=== PATIENT | female | born 1970 | race Caucasian/White ===

== ENCOUNTER 2018-01-01 12:41 | Day surgery (SDC) | payer BC ==
[~2018-01-01] VITALS: Ht 172.7 cm; Wt 141.0 kg
[2018-01-01 13:02] VITALS: BP 128/78; PULSE 88; TEMP 99.5
[2018-01-01] MEDS ORDERED: NIACIN 100100 MG/TAB PO (13:05)
[2018-01-01] MEDS ORDERED: JANUVIA 100MG100 MG PO (13:05)
[2018-01-01] MEDS ORDERED: PRINIVIL10 MG PO (13:05)
[2018-01-01] MEDS ORDERED: ALLEGRA 60MG TA60 MG PO (13:06)
[2018-01-01] MEDS ORDERED: SINGULAIR 110 MG/TAB PO (13:06)
[2018-01-01] MEDS ORDERED: FLONASEALLERGY NS (13:06)
[2018-01-01] MEDS ORDERED: SYNTHROID0.125 MG/T PO (13:06)
[2018-01-01] MEDS ORDERED: BYDUREON P2 MG/0.65 SQ (13:07)
[2018-01-01] MEDS ORDERED: 00186-0372-20 IH (13:07)
[2018-01-01 14:15] VITALS: BP 101/67; PULSE 89; TEMP 97.8
[2018-01-01 14:30] VITALS: BP 114/82; PULSE 81
== END 2018-01-01 14:44 | disposition home or self-care (01) ==
LOC: SDCO 12:41
DX: K92.1 Melena (principal); K64.1 Second degree hemorrhoids; K64.4 Residual hemorrhoidal skin tags; J45.909 Unspecified asthma, uncomplicated; E11.9 Type 2 diabetes mellitus without complications; K76.0 Fatty (change of) liver, not elsewhere classified; E07.9 Disorder of thyroid, unspecified; E78.00 Pure hypercholesterolemia, unspecified; K21.9 Gastro-esophageal reflux disease without esophagitis
CPT/HCPCS: J2250; J3010; J7030

== ENCOUNTER → 2021-02-19 | Outpatient (CLI) | payer BC ==
[~2021-02-19] MED LIST: 00186-0372-20 IH; ALLEGRA 60MG TA60 MG PO; BYDUREON P2 MG/0.65 SQ; FLONASEALLERGY NS; JANUVIA 100MG100 MG PO; NIACIN 100100 MG/TAB PO; PRINIVIL10 MG PO; SINGULAIR 110 MG/TAB PO; SYNTHROID0.125 MG/T PO
== END ==
LOC: MC.RAD 12:43
DX: Z12.31 Encounter for screening mammogram for malignant neoplasm of breast (principal)

== ENCOUNTER → 2022-06-13 | Outpatient (CLI) | payer BC | LOC: MC.RAD 08:03 | DX: Z12.31 Encounter for screening mammogram for malignant neoplasm of breast (principal) ==